=== PATIENT | male | born 1950 | race Two or more races ===

== ENCOUNTER 2016-06-15 15:57 | Emergency (ER) | payer MEDICAID ==
[~2016-06-15] VITALS: Ht 167.6 cm; Wt 65.8 kg
[2016-06-15 15:58] VITALS: BP 130/72
[2016-06-15] MEDS ORDERED: TETRACAINE HCL/PF 0.5% UD 2 ML BOTTLE OP ONE (18:00)
[2016-06-15] MEDS ORDERED: FLUORESCEIN SODIUM OPHTH 1 EA STRIP ONE (18:07)
[2016-06-15] MEDS ORDERED: TETRACAINE HCL/PF 0.5% UD 2 ML BOTTLE ONE (18:08)
== END 2016-06-15 20:23 | disposition home or self-care (01) ==
LOC: ER 16:04
DX: H57.13 Ocular pain, bilateral (principal)
CPT/HCPCS: 99283; A4606; Z7610